=== PATIENT | male | born 1985 | race American Indian/Alaskan Native ===

== ENCOUNTER 2019-12-01 10:59 | Emergency (ER) | payer SELFPAY ==
--- NOTE | 2019-12-01 11:35 | Emergency Department Report ---
Suture/Staple Removal - HPI Chief Complaint: Laceration/Recheck/Suture Stated Complaint: SUTURE CHECK Time Seen by Provider: 12/01/19 11:18 When Sutures or Chucky Placed: 5-7 Days Ago Wound Location: Right thumb ED Review of Systems ROS: Stated complaint: SUTURE CHECK Other details as noted in HPI Comment: All other systems reviewed and negative ED Past Medical Hx - Past Medical History Previous Medical History?: No - Surgical History Past Surgical History?: No - Social History Smoking Status: Never Smoker Substance Use Type: None Suture Removal Exam - Exam General: Vital signs noted. No distress. Alert and acting appropriately. Wound: No Pathologic Erythema, No Tenderness, No Drainage, No Pus, No Wound Dehiscence Other Systems: All other systems reviewed and are unremarkable. ED Course Vital Signs 12/01/19 11:02 Temperature 98.1 F Pulse Rate 65 Respiratory 20 Rate Blood Pressure 114/76 O2 Sat by Pulse 98 Oximetry ED Recheck MDM - Differential Diagnosis Suture/Staple Removal Critical care attestation.: If time is entered above; I have spent that time in minutes in the direct care of this critically ill patient, excluding procedure time. ED Disposition Clinical Impression: Encounter for removal of sutures Disposition: DC-01 TO HOME OR SELFCARE Is pt being admited?: No Does the pt Need Aspirin: No Condition: Stable Additional Instructions: Keep wound clean and dry.
[2019-12-03 12:35] VITALS: BP 114/76
== END 2019-12-01 12:55 | disposition home or self-care (01) ==
LOC: ED 10:59
DX: Z48.02 Encounter for removal of sutures (principal)
CPT/HCPCS: 99282